=== PATIENT | male | born 1965 | race Hispanic/Latino ===

== ENCOUNTER 2021-08-04 09:49 | Emergency (ER) | payer OTHER ==
[~2021-08-04] VITALS: Ht 170.2 cm; Wt 93.1 kg
[2021-08-04] MEDS ORDERED: HYDROCODONE/APAP 5MG-325MG TAB PO ONE (10:15)
[2021-08-04] MEDS ORDERED: HYDROCODONE/APAP 5MG-325MG TAB ONE (10:34)
[2021-08-04] MEDS ORDERED: ONDANSETRON HCL INJ 2MG/ML 2ML 2 MG/ML VIAL ONE (10:34)
[2021-08-04] MEDS ORDERED: ONDANSETRON HCL INJ 2MG/ML 2ML 2 MG/ML VIAL IV ONE (10:39)
[2021-08-04] MEDS ORDERED: CYCLOBENZAPRINE5 MG PO (11:33)
[2021-08-04] MEDS ORDERED: ULTRAM50 MG PO (11:33)
[2021-08-04] MEDS ORDERED: ZITHROMAX250 MG PO (11:33)
== END 2021-08-04 11:38 | disposition home or self-care (01) ==
LOC: FSED 10:09
DX: R05.9 Cough, unspecified (principal); U07.1 COVID-19; J20.9 Acute bronchitis, unspecified; R51.9 Headache, unspecified; Z85.53 Personal history of malignant neoplasm of renal pelvis
CPT/HCPCS: 70450; 80053; 83518; 85025; 87400; 96374; 99284; J2405; U0002

== ENCOUNTER 2022-07-11 11:26 | Emergency (ER) | payer OTHER ==
[~2022-07-11] VITALS: Ht 170.2 cm; Wt 93.0 kg
[~2022-07-11 11:26] MED LIST: CYCLOBENZAPRINE5 MG PO; ULTRAM50 MG PO; ZITHROMAX250 MG PO
[2022-07-11] MEDS ORDERED: TAMIFLU75 MG PO (12:47)
[2022-07-11] MEDS ORDERED: GUAIFEN-CODEINE5 ML PO (12:49)
== END 2022-07-11 13:00 | disposition home or self-care (01) ==
LOC: FSED 11:30
DX: J10.1 Influenza due to other identified influenza virus with other respiratory manifestations (principal); I10 Essential (primary) hypertension
CPT/HCPCS: 99283